=== PATIENT | female | born 1990 | race Caucasian/White ===

== ENCOUNTER → 2024-11-17 | Outpatient (CLI) | payer OTHER | END | disposition home or self-care (01) | LOC: LABWHC1 09:28 | PROVIDERS: ATTEND Obstetrics & Gynecology | DX: O00.90 Unspecified ectopic pregnancy without intrauterine pregnancy (principal) | CPT/HCPCS: 36415; 84702 ==

== ENCOUNTER → 2024-11-30 | Outpatient (CLI) | payer OTHER ==
--- NOTE | 2024-11-30 14:35 | US ---
EXAMINATION TYPE: US pelvis complete transvag DATE OF EXAM: 11/30/2024 COMPARISON: 10/28/2024 10/27/2024 10/03/2023 CLINICAL INDICATION: Female, 34 years old with history of R10.30 LOWER ABDOMINAL PAIN, UNSPECIFIED; E ctopic resolved with medication in october, patient states bleeding subsided on november 03. New o nset pain x few weeks TECHNIQUE: Transvaginal (TV) and Transabdominal (TA) . Transabdominal grayscale sonographic images of the pelvis were acquired. Transvaginal sonographic im ages were medically necessary to better assess the following anatomy: Ovaries Doppler imaging: Not performed. FINDINGS: Date of LMP: [place] EXAM MEASUREMENTS: Uterus: 9.0 x 3.6 x 5.0 cm Endometrial Stripe: 0.3 cm Right Ovary: 3.9 x 3.2 x 3.0 cm Left Ovary: 3.5 x 3.5 x 2.4 cm 1. Uterus: Anteverted wnl 2. Endometrium: wnl 3. Right Ovary: ? Retained products of conception inferomedial to ovary = 2.3 x 1.8 x 1.2 cm 4. Left Ovary: wnl 5. Bilateral Adnexa: ? retained product of conception within right adnexa inferomedial to ovary 6. Posterior cul-de-sac: wnl IMPRESSION: Complex right adnexal lesion possibly retained products of conception versus other. This is adjacent to the right ovary no internal color Doppler flow identified. Clinical correlation advised correlate with beta hCG. [facility], , 11/30/2024 2:33 PM
== END | disposition home or self-care (01) ==
LOC: RADUSWWP 13:43
PROVIDERS: ATTEND Student in an Organized Health Care Education/Training Program
DX: N83.8 Other noninflammatory disorders of ovary, fallopian tube and broad ligament (principal); Z87.59 Personal history of other complications of pregnancy, childbirth and the puerperium
CPT/HCPCS: 76830; 76856